=== PATIENT | male | born 2000 | race Caucasian/White ===

== ENCOUNTER 2021-05-04 05:37 | Emergency (ER) | payer BC, SELFPAY | END 2021-05-04 08:45 | disposition left against medical advice (07) | LOC: BURERS 05:37 | DX: S80.01XA Contusion of right knee, initial encounter (principal); S20.312A Abrasion of left front wall of thorax, initial encounter; V47.5XXA Car driver injured in collision with fixed or stationary object in traffic accident, initial encounter | CPT/HCPCS: 36415; 70450; 71250; 72125; 74177; G0390 ==